=== PATIENT | male | born 1940 | race Caucasian/White ===

== ENCOUNTER 2016-12-01 20:11 | Inpatient (IN) | payer MEDICARE ==
[2016-12-01 21:00] LABS: Hematocrit 43 % (42-52); Hemoglobin 14.2 g/dl (14.0-18.0); Mean Corpuscular HGB Conc 33 g/dl (31-36); Mean Corpuscular Hemoglobin 30 pg (27-31); Mean Corpuscular Volume 89 fL (80-94); Mean Platelet Volume 8 um3 (7.4-10.4); Red Blood Count 4.81 10^6/ul (4.0-5.4); Red Cell Distribution Width 14 % (10.5-15); White Blood Count 6.4 10^3/ul (3.5-10.8)
--- NOTE | 2016-12-01 21:05 | ED ---
Psychiatric Complaint - HPI Summary HPI Summary: Patient arrives with and daughter in law. Patient has limited communication d/t stroke several years ago, but will respond with "I'm OK." of patient states his behavior has gotten worse over the last 6-8 months and will "rage" out of control. Family no longer feel it is safe to be in the home with him. He has taken all of his medications today and per his , has not missed any doses. In the last 6 months, there have been instances of pointing a gun at his , trying to swing at family members and raging out of control by screaming. states he is a different person that he used to be and can no longer live with him this way. Patient had a coronary bypass surgery with 4 stent placements in 1988, a stroke 6 years ago and is a diabetic. Patient unable to tell me why he is here. - History Of Current Complaint Hx Obtained From: Family/Apprentice Machinist Outside Hx From Patient Unobtainable Due To: Other - stroke limits communication Onset/Duration: Gradual Onset Timing: Constant Severity Initially: Severe Severity Currently: Severe Character: Angry Aggravating Factor(s): Nothing Alleviating Factor(s): Nothing Associated Signs And Symptoms: Positive: Hostile, Confused, Social Isolation - Risk Factor(s) Completed Suicide Risk Factors: Male, Age Greater Than 60, White [place]ian <Lea Mccollum - Last Filed: 12/01/16 22:55> <Antwon Pollard - Last Filed: 12/02/16 06:20> - History Of Current Complaint Chief Complaint: EDMentalHealth Time Seen by Provider: 12/01/16 20:47 - Allergies/Home Medications Allergies/Adverse Reactions: Allergies Allergy/AdvReac Type Severity Reaction Status Date / Time No Known Allergies Allergy Verified 08/23/12 12:07 PMH/Surg Hx/FS Hx/Imm Hx Previously Healthy: No - diabetes, CAD, previous Bypass surgery in 1988, Stroke 6 years ago Endocrine/Hematology History: Reports: Hx Diabetes Cardiovascular History: Reports: Hx Coronary Artery Disease, Hx Hypertension, Hx Pacemaker/ICD, Hx Peripheral Vascular Disease History: Reports: Hx Chronic Renal Failure Neurological History: Reports: Hx Transient Ischemic Attacks (TIA) - Surgical History Surgery Procedure, Year, and Place: CVA, carotid endarterectomy, [place], CABG x 3, CVA x 2 - Immunization History Immunizations Up to Date: Unable to Obtain/Confirm Infectious Disease History: No Infectious Disease History: Denies: Traveled Outside the [place] in Last 30 Days - Social History Occupation: Retired Lives: With Family Alcohol Use: None Hx Substance Use: No Substance Use Type: Reports: None Hx Tobacco Use: No Smoking Status (MU): Former Smoker <Lea Mccollum Julio - Last Filed: 12/01/16 22:55> Review of Systems Constitutional: Negative Eyes: Negative Cardiovascular: Negative Positive: Cough Gastrointestinal: Negative Positive: see HPI Skin: Negative Neurological: Negative All Other Systems Reviewed And Are Negative: Yes <Veda,Lea Kim - Last Filed: 12/01/16 22:55> Physical Exam Triage Information Reviewed: Yes Vital Signs On Initial Exam: Initial Vitals Temp Pulse Resp BP Pulse Ox 98.0 F 70 16 120/71 96 12/01/16 20:24 12/01/16 20:24 12/01/16 20:24 12/01/16 20:24 12/01/16 20:24 Completion Of Physical Exam Limited Due To: Dementia Appearance: Positive: Well-Appearing, Thin Skin: Positive: Warm, Skin Color Reflects Adequate Perfusion Head/Face: Positive: Normal Head/Face Inspection Eyes: Positive: EOMI, NAS, Conjunctiva Clear Neck: Positive: Supple, No Lymphadenopathy Respiratory/Lung Sounds: Positive: Clear to Auscultation, Breath Sounds Present Cardiovascular: Positive: Normal, Pulses are Symmetrical in both Upper and Lower Extremities Bowel Sounds: Positive: Present Neurological: Positive: Sensory/Motor Intact, Speech Normal Psychiatric: Positive: Patient Uncooperative for Exam - patient refusing to answer questions on exam <Veda,Lea Kim - Last Filed: 12/01/16 22:55> Vital Signs On Initial Exam: Initial Vitals Temp Pulse Resp BP Pulse Ox 98.0 F 70 16 120/71 96 12/01/16 20:24 12/01/16 20:24 12/01/16 20:24 12/01/16 20:24 12/01/16 20:24 <Antwon Pollard - Last Filed: 12/02/16 06:20> Diagnostics - Vital Signs Vital Signs Temp Pulse Resp BP Pulse Ox 12/01/16 20:24 98.0 F 70 16 120/71 96 - Laboratory Result Diagrams: 12/01/16 20:45 12/01/16 20:45 Lab Statement: Any lab studies that have been ordered have been reviewed, and results considered in the medical decision making process. <Lea Mccollum - Last Filed: 12/01/16 22:55> - Vital Signs Vital Signs Temp Pulse Resp BP Pulse Ox 12/01/16 20:24 98.0 F 70 16 120/71 96 - Laboratory Lab Results: Lab Results 12/01/16 12/01/16 Range/Units 20:45 20:45 WBC 6.4 (3.5-10.8) 10^3/ul RBC 4.81 (4.0-5.4) 10^6/ul Hgb 14.2 (14.0-18.0) g/dl Hct 43 (42-52) % MCV 89 (80-94) fL MCH 30 (27-31) pg MCHC 33 (31-36) g/dl RDW 14 (10.5-15) % Plt Count 232 (150-450) 10^3/ul MPV 8 (7.4-10.4) um3 Neut % (Auto) 54.6 (38-83) % Lymph % (Auto) 25.7 (25-47) % Scurry % (Auto) 12.2 H (1-9) % Eos % (Auto) 6.5 H (0-6) % Baso % (Auto) 1.0 (0-2) % Absolute Neuts (auto) 3.5 (1.5-7.7) 10^3/ul Absolute Lymphs (auto) 1.7 (1.0-4.8) 10^3/ul Absolute Monos (auto) 0.8 (0-0.8) 10^3/ul Absolute Eos (auto) 0.4 (0-0.6) 10^3/ul Absolute Basos (auto) 0.1 (0-0.2) 10^3/ul Absolute Nucleated RBC 0 10^3/ul Nucleated RBC % 0 Sodium 138 (133-145) mmol/L Potassium 4.2 (3.5-5.0) mmol/L Chloride 105 (101-111) mmol/L Carbon Dioxide 25 (22-32) mmol/L Anion Gap 8 (2-11) mmol/L BUN 22 (6-24) mg/dL Creatinine 1.26 H (0.67-1.17) mg/dL Est GFR ( Amer) 71.2 (>60) Est GFR (Non-Af Amer) 55.4 (>60) BUN/Creatinine Ratio 17.5 (8-20) Glucose 89 (70-100) mg/dL Calcium 9.5 (8.6-10.3) mg/dL Total Bilirubin 0.30 (0.2-1.0) mg/dL AST 19 (13-39) U/L ALT 18 (7-52) U/L Alkaline Phosphatase 56 (34-104) U/L Total Protein 7.1 (6.4-8.9) g/dL Albumin 4.0 (3.2-5.2) g/dL Globulin 3.1 (2-4) g/dL Albumin/Globulin Ratio 1.3 (1-3) TSH 3.79 (0.34-5.60) mcIU/mL Salicylates < 2.50 (<30) mg/dL Acetaminophen < 15 mcg/mL Serum Alcohol < 10 (<10) mg/dL Result Diagrams: 12/01/16 20:45 12/01/16 20:45 Lab Statement: Any lab studies that have been ordered have been reviewed, and results considered in the medical decision making process. <Antwon Pollard - Last Filed: 12/02/16 06:20> Course/Dx - Course Course Of Treatment: Patient exhibiting violent behavior towards family which has progressively gotten worse over last 6 months. He is threatening family members and now they fear for their life and are no longer able to live with him. Patient is uncooperative on exam and refusing to answer providers questions. Stroke 6 years ago per limits his communication. Patient does have dementia, but per it is unknown if his behavior is from the stroke or the dementia. CT Brain performed with no new findings. Family consulted about possible social admission for social work to see patient in the AM d/t behavior and placement. It is unlikely he will need a psych admission at this point. <Lea Mccollum - Last Filed: 12/01/16 22:55> <Antwon Pollard - Last Filed: 12/02/16 06:20> - Differential Dx/Clinical Impression Provider Diagnosis: Dementia Discharge <Lea Mccollum - Last Filed: 12/01/16 22:55> <Antwon Pollard - Last Filed: 12/02/16 06:20> - Discharge Plan Condition: Guarded Disposition: ADMITTED TO [facility]
[2016-12-01 21:15] LABS: ALT 18 U/L (7-52); AST 19 U/L (13-39); Alkaline Phosphatase 56 U/L (34-104); Anion Gap 8 mmol/L (2-11); BUN/Creatinine Ratio 17.5 (8-20); Blood Urea Nitrogen 22 mg/dL (6-24); CO2 Carbon Dioxide 25 mmol/L (22-32); Calcium 9.5 mg/dL (8.6-10.3); Chloride 105 mmol/L (101-111); EGFR African American 71.2 (>60); EGFR Non-African American 55.4 (>60); Globulin 3.1 g/dL (2-4); Glucose 89 mg/dL (70-100); Potassium 4.2 mmol/L (3.5-5.0); Sodium 138 mmol/L (133-145); Total Protein 7.1 g/dL (6.4-8.9)
--- NOTE | 2016-12-01 21:23 | RAD ---
INDICATION: Dementia. History of CVA. COMPARISON: CT brain April 21, 2014 TECHNIQUE: Noncontrast axial source images were acquired from the skull base to the vertex. FINDINGS: Ventricles/sulci: There is cortical atrophy with compensatory dilatation of the CSF spaces. Brain parenchyma: There are old left posterior parietal and right frontoparietal infarct with resultant encephalomalacia. There is chronic microvascular ischemic change. Intracranial hemorrhage:None. Extra-axial spaces: There are no abnormal extra axial fluid collections or evidence of extra-axial mass. Calvarium: There is no calvarial fracture or other calvarial abnormality. Scalp: There is no evidence of scalp or extracalvarial soft tissue abnormality. Paranasal sinuses/mastoid: The paranasal sinuses and mastoid air cells are clear. Other: Bilateral basal ganglia calcifications.. IMPRESSION: Prior infarcts with encephalomalacia. No acute intracranial findings.
[2016-12-01 21:31] LABS: Acetaminophen < 15 mcg/mL; Alcohol < 10 mg/dL (<10); Salicylate < 2.50 mg/dL (<30)
[2016-12-01 21:41] LABS: TSH (Thyroid Stimulating Horm) 3.79 mcIU/mL (0.34-5.60)
[2016-12-01] MEDS ORDERED: Acetaminophen TAB* 325 MG PO PRN (23:43)
[2016-12-01] MEDS ORDERED: Al Hydrox/Mg Hydrox/Simet LIQ* 30 ML UDC PO PRN (23:43)
[2016-12-01] MEDS ORDERED: Docusate CAP* 100 MG PO PRN (23:43)
[2016-12-01] MEDS ORDERED: Senna TAB PO PRN (23:43)
[2016-12-01] MEDS ORDERED: Ondansetron INJ* 2 MG/ML VIAL IV PRN (23:43)
[2016-12-01] MEDS ORDERED: Dextrose 50% Syringe 50 ML* 25 GM/50 ML SYRINGE IV PUSH PRN (23:47)
[2016-12-02] MEDS ORDERED: Haloperidol TAB* 2 MG PO PRN (00:04)
--- NOTE | 2016-12-02 02:36 | HP ---
HISTORY AND PHYSICAL: DATE OF ADMISSION: 12/01/16 TIME OF EVALUATION: 2300 PRIMARY CARE PHYSICIAN: German Mckeon MD CHIEF COMPLAINT: Agitation with altered mental status. HISTORY OF PRESENT ILLNESS: Of note, the patient is unable to answer questions or follow commands appropriately. There is no family member in the room and I am unable to get in touch with them by phone. Per report is based on the ER notes and prior records. The patient arrived to the emergency room with his and daughter. He has limited communication due to his stroke. states that his behavior has gotten worse over the past 6 to 8 months with rage out of control. Family no longer feels safe for him to be in the home. In the last 6 months, there have been instances of pointing a gun at his , trying to be aggressive with family members, and raging out of control by screaming. states that he is a different person than he used to be and can no longer live with him this way. On my encounter, the patient is unable to answer any questions appropriately. He is alert and oriented x0. He is unable to follow any commands. No signs of agitation or aggressive behavior during my brief encounter with him. Due to the concern for safety at home, hospitalist was called for evaluation and admission for placement. PAST MEDICAL HISTORY: Per prior records from 2013, the patient has a history of stroke; hypertension; hyperlipidemia; diabetes; CKD, stage 3; history of neuropathy; peripheral vascular disease; history of SVT; history of coronary artery disease, status post bypass; history of prostate cancer; history of GERD ; history of a left and right carotid endarterectomy; triple bypass surgery; history of prostatectomy. MEDICATIONS: 1. MiraLAX 1 teaspoon in 8 ounces of water daily. 2. Metoprolol tartrate 12.5 mg p.o. b.i.d. 3. Aspirin 325 mg daily in the morning. 4. Colace 100 mg daily in the morning. 5. Ranitidine 150 mg daily. 6. Glipizide 5 mg daily. 7. Enalapril 5 mg p.o. b.i.d. 8. Metformin 1000 mg daily. 9. Rosuvastatin 40 mg daily. 10. Lasix 20 mg Thursday, Thursday, Thursday. 11. Spironolactone 25 mg Thursday, , and Thursday. 12. Lamotrigine 50 mg p.o. daily, which was started on 11/06/16. 13. Vitamin D 4000 units twice a week. 14. Escitalopram oxalate 10 mg daily. ALLERGIES: No known drug allergies. FAMILY HISTORY: History of coronary disease and diabetes. SOCIAL HISTORY: It appears the patient lives at home with his , who per prior records has been his primary surrogate decision maker, history of smoking , no alcohol or recreational drugs. REVIEW OF SYSTEMS: Unable to be obtained due to the patient's profound dementia. PHYSICAL EXAMINATION GENERAL: In no acute distress, resting comfortably. VITAL SIGNS: Temp 98, pulse rate 70, respiratory rate 16, oxygen saturation 96 % on room air, blood pressure 120/71. HEENT: Neck supple. No lymphadenopathy. Pupils equal and reactive, anicteric. Head: Normocephalic. Oropharynx: Mucous membranes moist. No erythema or exudate. RESPIRATORY: Diminished breath sounds. No wheezing, rhonchi, or rales. CARDIAC: Regular rate and rhythm. Soft systolic murmur heard more pronounced at the right sternal base. No carotid bruits. ABDOMEN: Mild distention, nontender. EXTREMITIES: No clubbing, cyanosis, or edema. +1 DPs. NEUROLOGIC: As mentioned, alert and oriented x0. No gross focal neurologic deficits and unable to follow any commands. DIAGNOSTIC STUDIES/LAB DATA: White count 6.4, hemoglobin 14.2, hematocrit 43, platelets 232. Sodium 138, potassium 4.2, chloride 105, bicarb 25, BUN 22, creatinine 1.26, glucose 89. TSH 3.79. Toxicology: Negative for salicylates, acetaminophen, and alcohol. Radiographic data: Head CT, prior infarct with encephalomalacia. No acute intracranial findings. ASSESSMENT AND PLAN: This is a 76-year-old male with a past medical history of vascular dementia, who has progressive aggressive behavior at home and is unsafe to be taken care of at home by the . Progressive vascular dementia. Assessment: As mentioned, the patient now with aggressive behavior. I suspect that the lamotrigine was started due to his aggressive behavior back in October. There is no documentation of a seizure disorder. This can cause emotional lability though I doubt that this is really contributing significantly to his mental status. We will decrease it by half as it was mentioned to decrease 50 per week unless urgent and then I would follow up with the family to make sure he is not on this for seizure disorder. There are no other findings on his lab or imaging to suggest any other etiology for his worsening mental status other than lamotrigine. Plan: We will admit him for observation to [facility]. We will start him on Haldol as needed. As mentioned, decrease his lamotrigine. We will order Social Work consult and recommend following up with the family regarding better history including seizure disorder and his code status as it is unknown at this time and as mentioned, unable to get in touch with the family members. CHRONIC MEDICAL PROBLEMS: 1. Hypertension. Resume his metoprolol tartrate and his aspirin. 2. Suspect a history of congestive heart failure. We will per Dr Trujillo's note continue him on his Lasix and spironolactone regimen. 3. Diabetes: We will hold his oral antihyperglycemic agents and place him on lispro sliding scale. 4. Hyperlipidemia. Continue his rosuvastatin. 5. GERD. We will place him on Pepcid in place of his Zantac. 6. Dementia with behavioral disturbance. As mentioned above, we will decrease his lamotrigine. I doubt that any other agents such as Namenda or Aricept will be beneficial at this point, but can consider this. 7. FEN. Place him on a diabetic diet. 8. DVT prophylaxis, high risk. We will place him on heparin subcu t.i.d. 9. Code status. This needs to be followed with the family as it stands he remains full code. PATIENT TIME: Greater than 60 minutes was spent doing the history and physical ; more than half the time was in direct patient contact. CC: German Mckeon MD* [id number]/[facility] #: [id number] [place]
[2016-12-02] MEDS: Heparin VIAL(*) 5000 UNITS/ML VIAL (FIVE THOUSAND) SUBCUT SCH ×3 (05:43→21:29)
[2016-12-02] MEDS: Polyethylene Glycol 3350* 17 GM PACKET PO SCH (09:19)
[2016-12-02] MEDS: Famotidine TAB* 20 MG PO SCH (09:21)
[2016-12-02] MEDS: Metoprolol Tartrate TAB* 25 MG PO SCH ×2 (09:21→21:29)
[2016-12-02] MEDS: lamoTRIgine TAB(*) 25 MG PO SCH (09:21)
[2016-12-02] MEDS: Enalapril TAB* 5 MG PO SCH (09:21)
[2016-12-02] MEDS: Spironolactone TAB* 25 MG PO SCH (09:21)
[2016-12-02] MEDS: Aspirin TAB* 325 MG PO SCH (09:21)
[2016-12-02] MEDS: Insulin LISPRO* 1 UNITS UNIT SUBCUT SCH ×3 (09:24→17:35)
--- NOTE | 2016-12-02 13:43 | PN ---
Subjective Date of Service: 12/02/16 Interval History: This is a 76 yo gentleman with a h/o prior CVA, dementia, HTN, HLD, CKD, PVD who was brought to the ER by family with concern for aggressive behavior. They did not feel that they could care for him any longer at home due to this behavior. Initial workup was benign. Patient offers no acute complaints today. He has been appropriate with nursing staff since admission. Objective Active Medications: Acetaminophen (Tylenol Tab*) 650 mg PO Q4H PRN PRN Reason: FEVER/PAIN Al Hydrox/Mg Hydrox/Simethicone (Maalox Plus*) 30 ml PO Q6H PRN PRN Reason: INDIGESTION Aspirin (Aspirin Tab*) 325 mg PO DAILY [facility] Last Admin: 12/02/16 09:21 Dose: 325 mg Atorvastatin Calcium (Lipitor*) 80 mg PO 1700 [facility] Citalopram Hydrobromide (Celexa Tab*) 20 mg PO BEDTIME [facility] Dextrose (D50w Syringe 50 Ml*) 12.5 gm IV PUSH .FOR FS < 60 - SS PRN PRN Reason: FS < 60 Docusate Sodium (Colace Cap*) 100 mg PO BID PRN PRN Reason: CONSTIPATION Enalapril Maleate (Vasotec Tab*) 5 mg PO DAILY [facility] Last Admin: 12/02/16 09:21 Dose: 5 mg Famotidine (Pepcid Tab*) 20 mg PO DAILY [facility] Last Admin: 12/02/16 09:21 Dose: 20 mg Furosemide (Lasix Tab*) 20 mg PO MOWEFR [facility] Haloperidol (Haldol Tab*) 2 mg PO Q6H PRN PRN Reason: AGITATION Heparin Sodium (Porcine) (Heparin Vial(*)) 5,000 units SUBCUT Q8HR [facility] Last Admin: 12/02/16 13:21 Dose: 5,000 units Insulin Human Lispro (Humalog*) 0 units SUBCUT AC [facility] PRN Reason: Protocol Last Admin: 12/02/16 13:21 Dose: 3 units Lamotrigine (Lamictal Tab(*)) 25 mg PO DAILY [facility] Last Admin: 12/02/16 09:21 Dose: 25 mg Metoprolol Tartrate (Lopressor Tab*) 12.5 mg PO Q12HR [facility] Last Admin: 12/02/16 09:21 Dose: 12.5 mg Ondansetron HCl (Zofran Inj*) 4 mg IV Q4H PRN PRN Reason: NAUSEA/VOMITING Polyethylene Glycol/Electrolytes (Miralax*) 17 gm PO DAILY [facility] Last Admin: 12/02/16 09:19 Dose: 17 gm Senna (Senokot Tab*) 1 tab PO BID PRN PRN Reason: CONSTIPATION Spironolactone (Aldactone Tab*) 25 mg PO TUTHFR [facility] Last Admin: 12/02/16 09:21 Dose: 25 mg Vital Signs: Temp Pulse Resp BP Pulse Ox 98.1 F 74 18 133/69 94 12/02/16 02:57 12/02/16 02:57 12/02/16 02:58 12/02/16 02:57 12/02/16 02:57 Oxygen Devices in Use Now: None Appearance: Well appearing elderly gentleman Neck: NL Appearance and Movements; NL JVP Respiratory: Symmetrical Chest Expansion and Respiratory Effort, Clear to Auscultation Cardiovascular: NL Sounds; No Murmurs; No JVD, RRR Abdominal: NL Sounds; No Tenderness; No Distention Extremities: No Edema Skin: No Rash or Ulcers Neurological: - - alert, mild confusion, appropriate in conversation Result Diagrams: 12/01/16 20:45 12/01/16 20:45 Additional Lab and Data: . Diagnostic Imaging: CT brain - NAD, old infarcts and associated encephalomalacia Assess/Plan/Problems-Billing Assessment: This is a 76 yo gentleman with a h/o dementia, prior CVA, HTN, HLD, PVD, DM, stage III CKD, neuropathy, CAD s/p CABG, h/o prostate CA s/p prostatectomy and GERD who presented with concerns for aggressive behavior at home. Admitted for social reasons. - Patient Problems (1) Dementia Comment: With concern for aggressive behavior at home Likely vascular dementia type Patient has been appropriate during his hospitalizations It appears that he was recently started on Lamictal, perhaps as a mood stabilizer, unsure if this was initiated by PCP or outpatient psychiatrist Requested psychiatric consult to help to determine if there is an associated psychiatric condition that may be contributing to his current presentation His home dose of Lamictal was decreased, he may benefit from discontinuing this all together, will ask psychiatry to comment on medical management He may also benefit from Namenda and/or Aricept as his dementia does not appear terribly severe (2) H/O: CVA (cerebrovascular accident) Comment: It appears that one prior infarct is in the frontoparietal region which may be contributing to his change in behavior and aggressive tendencies at home (3) HTN (hypertension) Comment: Normotensive Continuing home medication (4) HLD (hyperlipidemia) Comment: (5) Stage III chronic kidney disease Comment: Cr 1.26, appears to be at baseline (6) PVD (peripheral vascular disease) (7) CAD (coronary artery disease) Comment: s/p CABG (8) History of prostate cancer Comment: s/p prostatectomy (9) GERD (gastroesophageal reflux disease) Status and Disposition: Patient will remain in the hospital under jail care. Case management and social work is involved to help with appropriate placement.
--- NOTE | 2016-12-02 13:47 | CONS ---
DATE OF CONSULT: 12/02/2016. CONSULTATION QUESTION: Is there an underlying psychiatric issue with this patient who evidently is suffering from end-stage dementia? HISTORY OF PRESENT ILLNESS: The patient came into the hospital due to agitation culminating in dangerous acts such as pointing an unloaded gun at his but looking for ammunition while doing so. The family has reported to staff here that the patient has ongoing signs of progression of dementia into agitated behavior, per report to me from his nurse and social security benefits interviewer. I am unable to gather much information from interview of the patient. After two or three sentence he will invariably tell me that he cannot help me, saying that he has no good, and then waiting for me to complete his statement with memory?, which he agrees to. He is pleasant and does make an earnest albeit unsuccessful effort to help me with my questions. I did speak with his PCP, Dr Mckeon, who reports that Mr. Maldonado has had multiple strokes over several years resulting in a severe multi-infarct dementia , the last stroke occurring a few years ago. Dr. Mckeon did not know of any psychiatric history and did not know of development of any symptoms evincive of a psychiatric illness. All of Mr. Hill erratic behavior has unfolded, so far as Dr. Mckeon knows, after these multiple strokes. He has tried Lexapro and most recently Lamictal, and had report from Mr. Hill that the Lamictal might have provided some initial benefit, but this did not hold up. I have attempted to contact his , Brinda, per the recommendation of the social security benefits interviewer on the case, Dolores. Dolores tells me that she has been unable to contact his sons. I did not get ahold of his as the phone just continued to ring and no one picked up over 2 attempts midday. PSYCHIATRIC HISTORY: Denies any, and his PCP knows of none. SUBSTANCE ABUSE HISTORY: Denies any. MEDICAL HISTORY: Please see documentation from hospitalist service for complete list. Most relevant issue here is multiple strokes, hypertension, hyperlipidemia, DM2, CKD stage 3, history prostate cancer. MENTAL STATUS EXAMINATION: Mr. Maldonado says his mood is fine, and he denies any hallucinations or dangerous intent or plan. His thought process is severely impoverished. He has grooming and hygiene adequate to setting. He makes good eye contact. His speech has regular rate, rhythm and volume, but only for at most 2-3 sentences at a time prior to becoming confused. ASSESSMENT/RECOMMENDATIONS: I see no clear indications of an underlying psychiatric illness. His report to me is that this is a gentleman in a severe demented state who will require placement for increased agitation due to that. There is no indication or history gathered thus far for an underlying psychiatric issue. If not already available, might benefit from neuroimaging to rule out visualizable cause of mental status change apart from stroke, ie tumor. MRI might be challenging, however, given limited capacity to hold head still for study due to severe dementia. DIAGNOSIS: No identifiable primary psychiatric disorder. Multi-infarct dementia most likely cause of behavioral changes. [id number]/[facility] #: [id number] [place]
[2016-12-02 15:42] LABS: Urine Bacteria Absent (Absent); Urine Bilirubin Negative (Negative); Urine Glucose Negative (Negative); Urine Nitrite Negative (Negative)
[2016-12-02 15:52] LABS: Benzodiazepine Urine Screen None Detected (None Detect)
[2016-12-02] MEDS: Atorvastatin* 80 MG TAB PO SCH (17:34)
[2016-12-02] MEDS: Citalopram TAB* 20 MG PO SCH (21:29)
[2016-12-03] MEDS: Heparin VIAL(*) 5000 UNITS/ML VIAL (FIVE THOUSAND) SUBCUT SCH ×3 (07:25→21:24)
[2016-12-03] MEDS: Polyethylene Glycol 3350* 17 GM PACKET PO SCH (09:35)
[2016-12-03] MEDS: Metoprolol Tartrate TAB* 25 MG PO SCH ×2 (09:35→21:18)
[2016-12-03] MEDS: Aspirin TAB* 325 MG PO SCH (09:35)
[2016-12-03] MEDS: Enalapril TAB* 5 MG PO SCH (09:35)
[2016-12-03] MEDS: lamoTRIgine TAB(*) 25 MG PO SCH (09:35)
[2016-12-03] MEDS: Furosemide TAB* 20 MG PO SCH (09:35)
[2016-12-03] MEDS: Famotidine TAB* 20 MG PO SCH (09:36)
[2016-12-03] MEDS: Insulin LISPRO* 1 UNITS UNIT SUBCUT SCH ×3 (09:36→18:43)
[2016-12-03] MEDS: Atorvastatin* 80 MG TAB PO SCH (16:41)
[2016-12-03] MEDS: Citalopram TAB* 20 MG PO SCH (21:18)
[2016-12-04] MEDS: Heparin VIAL(*) 5000 UNITS/ML VIAL (FIVE THOUSAND) SUBCUT SCH ×3 (06:26→22:08)
[2016-12-04] MEDS: Insulin LISPRO* 1 UNITS UNIT SUBCUT SCH ×3 (09:27→20:17)
[2016-12-04] MEDS: Metoprolol Tartrate TAB* 25 MG PO SCH ×2 (09:29→22:08)
[2016-12-04] MEDS: Polyethylene Glycol 3350* 17 GM PACKET PO SCH (09:31)
[2016-12-04] MEDS: Enalapril TAB* 5 MG PO SCH (09:32)
[2016-12-04] MEDS: Aspirin TAB* 325 MG PO SCH (09:32)
[2016-12-04] MEDS: lamoTRIgine TAB(*) 25 MG PO SCH (09:32)
[2016-12-04] MEDS: Famotidine TAB* 20 MG PO SCH (09:32)
[2016-12-04] MEDS: Spironolactone TAB* 25 MG PO SCH (09:42)
[2016-12-04] MEDS: Atorvastatin* 80 MG TAB PO SCH (18:13)
[2016-12-04] MEDS ORDERED: Magnesium Hydroxide LIQ* 30 ML UDC PO PRN (19:18)
[2016-12-04] MEDS ORDERED: Artificial Tears* 15 ML BTL BOTH EYES PRN (19:23)
--- NOTE | 2016-12-04 19:25 | PN ---
Subjective Date of Service: 12/04/16 Interval History: Patient seen and examined at bedside. Pt denies complain with the exception of dry eyes. Pt's states that his abdomen appears to be larger than his normal. Per NSG staff Pt has not moved his bowels in 2 days. Denies fever, chills, shortness of breath, chest discomfort, N/V/D. Family History: Unchanged from Admission Social History: Unchanged from Admission Past Medical History: Unchanged from Admission Objective Active Medications: Acetaminophen (Tylenol Tab*) 650 mg PO Q4H PRN Reason: FEVER/PAIN Al Hydrox/Mg Hydrox/Simethicone (Maalox Plus*) 30 ml PO Q6H PRN Reason: INDIGESTION Aspirin (Aspirin Tab*) 325 mg PO DAILY [facility] Atorvastatin Calcium (Lipitor*) 80 mg PO 1700 [facility] Citalopram Hydrobromide (Celexa Tab*) 20 mg PO BEDTIME [facility] Dextrose (D50w Syringe 50 Ml*) 12.5 gm IV PUSH .FOR FS < 60 - SS PRN Reason: FS < 60 Docusate Sodium (Colace Cap*) 100 mg PO BID PRN Reason: CONSTIPATION Enalapril Maleate (Vasotec Tab*) 5 mg PO DAILY [facility] Famotidine (Pepcid Tab*) 20 mg PO DAILY [facility] Furosemide (Lasix Tab*) 20 mg PO MOWEFR [facility] Haloperidol (Haldol Tab*) 2 mg PO Q6H PRN Reason: AGITATION Heparin Sodium (Porcine) (Heparin Vial(*)) 5,000 units SUBCUT Q8HR [facility] Insulin Human Lispro (Humalog*) 0 units SUBCUT AC [facility] Lamotrigine (Lamictal Tab(*)) 25 mg PO DAILY [facility] Metoprolol Tartrate (Lopressor Tab*) 12.5 mg PO Q12HR [facility] Ondansetron HCl (Zofran Inj*) 4 mg IV Q4H PRN Reason: NAUSEA/VOMITING Polyethylene Glycol/Electrolytes (Miralax*) 17 gm PO DAILY [facility] Senna (Senokot Tab*) 1 tab PO BID PRN Reason: CONSTIPATION Spironolactone (Aldactone Tab*) 25 mg PO TUTHFR [facility] Vital Signs 12/03/16 12/04/16 12/04/16 20:00 07:16 08:00 Temperature 98.3 F Pulse Rate 70 Respiratory 16 16 Rate Blood Pressure 131/69 (mmHg) O2 Sat by Pulse 96 Oximetry Oxygen Devices in Use Now: None Result Diagrams: 12/01/16 20:45 12/01/16 20:45 Additional Lab and Data: . Microbiology and Other Data: Microbiology 12/02/16 15:15 Urine Culture - Final Urine Diagnostic Imaging: CT brain - NAD, old infarcts and associated encephalomalacia Assess/Plan/Problems-Billing Assessment: Mr. Maldonado is a 76 yo gentleman with a h/o dementia, prior CVA, HTN, HLD, PVD, DM, stage III CKD, neuropathy, CAD s/p CABG, h/o prostate CA s/p prostatectomy and GERD who presented with concerns for aggressive behavior at home. Admitted for social reasons. - Patient Problems (1) Dementia Code(s): F03.90 - UNSPECIFIED DEMENTIA WITHOUT BEHAVIORAL DISTURBANCE SNOMED Code(s): 02805132 Comment: - With concern for aggressive behavior at home - Likely vascular dementia type - Patient has been appropriate during his hospitalizations - It appears that he was recently started on Lamictal, perhaps as a mood stabilizer, unsure if this was initiated by PCP or outpatient psychiatrist - Psychiatric consult, feel this is all related to his dementia - His home dose of Lamictal was decreased, he may benefit from discontinuing this all together - He may also benefit from Namenda and/or Aricept as his dementia does not appear to be severe (2) H/O: CVA (cerebrovascular accident) Code(s): Z86.73 - PRSNL HX OF TIA (TIA), AND CEREB INFRC W/O RESID DEFICITS SNOMED Code(s): 105645683 Comment: - It appears that one prior infarct is in the frontoparietal region which may be contributing to his change in behavior and aggressive tendencies at home (3) CAD (coronary artery disease) Code(s): I25.10 - ATHSCL HEART DISEASE OF [place] CORONARY ARTERY W/O ANG PCTRS SNOMED Code(s): 78554906 Comment: - s/p CABG (4) GERD (gastroesophageal reflux disease) Code(s): K21.9 - GASTRO-ESOPHAGEAL REFLUX DISEASE WITHOUT ESOPHAGITIS SNOMED Code(s): 617755909 Comment: - Continue Pepcid (5) HLD (hyperlipidemia) Code(s): E78.5 - HYPERLIPIDEMIA, UNSPECIFIED SNOMED Code(s): 68826143 Comment: - Continue Atorvastatin (6) HTN (hypertension) Code(s): I10 - ESSENTIAL (PRIMARY) HYPERTENSION SNOMED Code(s): 22534394 Comment: - Normotensive - Continuing home medication (7) History of prostate cancer Code(s): Z85.46 - PERSONAL HISTORY OF MALIGNANT NEOPLASM OF PROSTATE SNOMED Code(s): 900823955 Comment: - s/p prostatectomy (8) Stage III chronic kidney disease Code(s): N18.3 - CHRONIC KIDNEY DISEASE, STAGE 3 (MODERATE) SNOMED Code(s): 853964532 Comment: - Cr 1.26, appears to be at baseline (9) PVD (peripheral vascular disease) Code(s): I73.9 - PERIPHERAL VASCULAR DISEASE, UNSPECIFIED SNOMED Code(s): 509606045 (10) DVT prophylaxis Code(s): CLP6746 - SNOMED Code(s): 738509032 Comment: - Continue Heparin SQ (11) Full code status Code(s): Z78.9 - OTHER SPECIFIED HEALTH STATUS SNOMED Code(s): 548809062 Status and Disposition: Patient will remain in the hospital under penitentiary care. Case management and social work is involved to help with appropriate placement.
[2016-12-04] MEDS: Citalopram TAB* 20 MG PO SCH (22:10)
[2016-12-05] MEDS: Heparin VIAL(*) 5000 UNITS/ML VIAL (FIVE THOUSAND) SUBCUT SCH (06:49)
[2016-12-05] MEDS: Famotidine TAB* 20 MG PO SCH (09:11)
[2016-12-05] MEDS: lamoTRIgine TAB(*) 25 MG PO SCH (09:11)
[2016-12-05] MEDS: Aspirin TAB* 325 MG PO SCH (09:11)
[2016-12-05] MEDS: Polyethylene Glycol 3350* 17 GM PACKET PO SCH (09:11)
[2016-12-05] MEDS: Metoprolol Tartrate TAB* 25 MG PO SCH (09:11)
[2016-12-05] MEDS: Enalapril TAB* 5 MG PO SCH (09:11)
[2016-12-05] MEDS: Spironolactone TAB* 25 MG PO SCH (09:37)
[2016-12-05] MEDS: Furosemide TAB* 20 MG PO SCH (09:43)
[2016-12-05] MEDS: Insulin LISPRO* 1 UNITS UNIT SUBCUT SCH ×2 (09:44→12:51)
--- NOTE | 2016-12-05 09:53 | PN ---
Subjective Date of Service: 12/05/16 Interval History: Patient seen and examined at bedside. Pt states that he is feeling well today. Denies fever, chills, shortness of breath, chest discomfort, N/V/D. Family History: Unchanged from Admission Social History: Unchanged from Admission Past Medical History: Unchanged from Admission Objective Active Medications: Acetaminophen (Tylenol Tab*) 650 mg PO Q4H PRN Reason: FEVER/PAIN Al Hydrox/Mg Hydrox/Simethicone (Maalox Plus*) 30 ml PO Q6H PRN Reason: INDIGESTION Aspirin (Aspirin Tab*) 325 mg PO DAILY [facility] Atorvastatin Calcium (Lipitor*) 80 mg PO 1700 [facility] Citalopram Hydrobromide (Celexa Tab*) 20 mg PO BEDTIME [facility] Dextrose (D50w Syringe 50 Ml*) 12.5 gm IV PUSH .FOR FS < 60 - SS PRN Reason: FS < 60 Docusate Sodium (Colace Cap*) 100 mg PO BID PRN Reason: CONSTIPATION Enalapril Maleate (Vasotec Tab*) 5 mg PO DAILY [facility] Famotidine (Pepcid Tab*) 20 mg PO DAILY [facility] Furosemide (Lasix Tab*) 20 mg PO MOWEFR [facility] Haloperidol (Haldol Tab*) 2 mg PO Q6H PRN Reason: AGITATION Heparin Sodium (Porcine) (Heparin Vial(*)) 5,000 units SUBCUT Q8HR [facility] Insulin Human Lispro (Humalog*) 0 units SUBCUT AC [facility] Reason: Protocol Lamotrigine (Lamictal Tab(*)) 25 mg PO DAILY [facility] Magnesium Hydroxide (Milk Of Magnesia Liq*) 30 ml PO Q6H PRN Reason: CONSTIPATION Metoprolol Tartrate (Lopressor Tab*) 12.5 mg PO Q12HR [facility] Ondansetron HCl (Zofran Inj*) 4 mg IV Q4H PRN Reason: NAUSEA/VOMITING Polyethylene Glycol/Electrolytes (Miralax*) 17 gm PO DAILY [facility] Polyvinyl Alcohol (Polyvinyl Alcohol 1.4% Opth*) 1 drop BOTH EYES Q4H PRN Reason: DRY EYE Senna (Senokot Tab*) 1 tab PO BID PRN Reason: CONSTIPATION Spironolactone (Aldactone Tab*) 25 mg PO TUTHFR [facility] Vital Signs 12/04/16 12/04/16 18:46 20:00 Temperature 97.7 F Pulse Rate 70 Respiratory 16 16 Rate Blood Pressure 129/72 (mmHg) O2 Sat by Pulse 97 Oximetry Oxygen Devices in Use Now: None Appearance: NAD, sitting up in a chair. Eyes: No Scleral Icterus, PERRLA Ears/Nose/Mouth/Throat: NL Teeth, Lips, Gums, Mucous Membranes Moist Neck: NL Appearance and Movements; NL JVP, Trachea Midline Respiratory: Symmetrical Chest Expansion and Respiratory Effort, Clear to Auscultation - , some rhonchi that clear with cough Cardiovascular: NL Sounds; No Murmurs; No JVD, RRR Abdominal: - - Abdomen soft/semi-firm, large, non tender. Bowel sounds present Extremities: No Edema Skin: No Rash or Ulcers Neurological: NL Muscle Strength and Tone, - - Alert and Oriented to Person, confused Nutrition: Taking PO's Result Diagrams: 12/01/16 20:45 12/01/16 20:45 Additional Lab and Data: . Microbiology and Other Data: Microbiology 12/02/16 15:15 Urine Culture - Final Urine Diagnostic Imaging: CT brain - NAD, old infarcts and associated encephalomalacia Assess/Plan/Problems-Billing Assessment: Mr. Maldonado is a 76 yo gentleman with a h/o dementia, prior CVA, HTN, HLD, PVD, DM, stage III CKD, neuropathy, CAD s/p CABG, h/o prostate CA s/p prostatectomy and GERD who presented with concerns for aggressive behavior at home. Admitted for social reasons. - Patient Problems (1) Dementia Code(s): F03.90 - UNSPECIFIED DEMENTIA WITHOUT BEHAVIORAL DISTURBANCE SNOMED Code(s): 44546301 Comment: - With concern for aggressive behavior at home - Likely vascular dementia type - Patient has been appropriate during his hospitalizations - He was recently started on Lamictal, perhaps as a mood stabilizer, by his PCP - Psychiatric consult, feel this is all related to his dementia - His home dose of Lamictal was decreased, he may benefit from discontinuing this all together - He may also benefit from Namenda and/or Aricept as his dementia does not appear to be severe (2) H/O: CVA (cerebrovascular accident) Code(s): Z86.73 - PRSNL HX OF TIA (TIA), AND CEREB INFRC W/O RESID DEFICITS SNOMED Code(s): 909514666 Comment: - It appears that one prior infarct is in the frontoparietal region which may be contributing to his change in behavior and aggressive tendencies at home (3) CAD (coronary artery disease) Code(s): I25.10 - ATHSCL HEART DISEASE OF [place] CORONARY ARTERY W/O ANG PCTRS SNOMED Code(s): 90342731 Comment: - s/p CABG - Continue ASA, beta-nayla and statin (4) GERD (gastroesophageal reflux disease) Code(s): K21.9 - GASTRO-ESOPHAGEAL REFLUX DISEASE WITHOUT ESOPHAGITIS SNOMED Code(s): 639462709 Comment: - Continue home medication (5) HLD (hyperlipidemia) Code(s): E78.5 - HYPERLIPIDEMIA, UNSPECIFIED SNOMED Code(s): 94091024 Comment: - Continue home medication (6) HTN (hypertension) Code(s): I10 - ESSENTIAL (PRIMARY) HYPERTENSION SNOMED Code(s): 52657720 Comment: - Normotensive - Continue home medication (7) History of prostate cancer Code(s): Z85.46 - PERSONAL HISTORY OF MALIGNANT NEOPLASM OF PROSTATE SNOMED Code(s): 636765111 Comment: - s/p prostatectomy (8) Stage III chronic kidney disease Code(s): N18.3 - CHRONIC KIDNEY DISEASE, STAGE 3 (MODERATE) SNOMED Code(s): 329578183 Comment: - Cr 1.26, appears to be at baseline (9) PVD (peripheral vascular disease) Code(s): I73.9 - PERIPHERAL VASCULAR DISEASE, UNSPECIFIED SNOMED Code(s): 612820570 (10) DVT prophylaxis Code(s): ZOX5101 - SNOMED Code(s): 853360922 Comment: (11) Full code status Code(s): Z78.9 - OTHER SPECIFIED HEALTH STATUS SNOMED Code(s): 073007434 Status and Disposition: [facility]. Stable for discharge to [facility] today.
[2016-12-05 12:08] VITALS: BP 133/74
--- NOTE | 2016-12-05 12:12 | DS ---
DISCHARGE SUMMARY: DATE OF ADMISSION: 12/01/16 DATE OF DISCHARGE: 12/05/16 ATTENDING PHYSICIAN: Bernarda Roberts MD *(dictated by Kalli Gonzalez NP) PRIMARY CARE PROVIDER: German Mckeon MD PRIMARY DIAGNOSES: 1. Altered mental status. 2. Dementia with behavioral disturbance. SECONDARY DIAGNOSES: 1. Hypertension. 2. Congestive heart failure. 3. Diabetes mellitus. 4. Hyperlipidemia. 5. Gastroesophageal reflux disease. 6. Chronic kidney disease, stage 3. 7. History of coronary artery disease, status post biopsy. 8. History of neuropathy. 9. Peripheral vascular disease. CONSULTATIONS WHILE IN THE HOSPITAL: Gerardo Vázquez MD with Psychiatry. STUDIES WHILE IN THE HOSPITAL: Brain CT on 12/01/16. Radiologist's impression : Prior infarcts with encephalomalacia. No acute intracranial findings. DISCHARGE MEDICATIONS: New medications: 1. Acetaminophen 650 mg oral every 4 hours as needed for fever or pain. 2. Maalox 30 mL oral every 6 hours as needed for indigestion. 3. Artificial tears 1 drop to both eyes every 4 hours as need for dry eye. 4. Milk of magnesia 30 mL oral every 6 hours as needed for constipation. 5. Senokot 1 tablet oral twice daily as needed for constipation. Continued home medications: 1. Metformin 1000 mg oral daily. 2. Glipizide 5 mg oral daily. 3. Ranitidine 150 mg oral daily. 4. Colace 100 mg oral daily. 5. Aspirin 325 mg oral daily. 6. Rosuvastatin 40 mg oral daily. 7. Metoprolol tartrate 12.5 mg oral twice daily. 8. Vitamin D 4000 units oral twice weekly. 9. MiraLAX 17 g oral daily. 10. Furosemide 20 mg oral daily on even days. 11. Spironolactone 25 mg oral every other day on odd days. Changed home medications: 1. Citalopram 20 mg oral daily at bedtime. 2. Enalapril 5 mg oral daily. 3. Lamictal 25 mg oral daily. HISTORY OF PRESENT ILLNESS/HOSPITAL COURSE: Mr. Maldonado is a 76-year-old male with past medical history significant for history of cerebrovascular accidents; hypertension; hyperlipidemia; diabetes mellitus; chronic kidney disease, stage 3 ; and peripheral vascular disease who, per family, reports that the patient's behavior has gotten worse over the last 6 to 8 months. The patient had limited communication due to his history of strokes. The patient's family was no longer feeling that he was safe to be at home. The patient had often been aggressive with family members and screaming out of control at them. Due to the feeling that the patient was no longer safe at home, the patient was brought to the emergency room for further evaluation. While in the emergency room, the patient was not aggressive or agitated. He was not alert, or oriented. The patient had a brain CT showing prior infarcts with encephalomalacia. The patient had labs that were unremarkable. Based off of the concern that the patient was not safe to go home hospitalists were asked to evaluate the patient for admission. While in the hospital, the patient remained calm and cooperative. He had no aggressive or combative episodes. The patient was seen in consultation with Dr. Vázquez with Psychiatry. It was felt that the patient's behavior was likely due to the patient's dementia. It was felt that there were no clear indications of underlying psychiatric issues. It was felt that the patient would need prison placement. It was recommended that the patient possibly undergo an MRI, but it was felt this will be challenging as the patient was unable to sit still. Psychiatry felt that the patient had a multi- infarct dementia causing his behavioral changes. The patient had his Lamictal dosing decreased at admission and has been tolerating that well. The patient was offered a bed to [facility]. Mr. Maldonado is stable for discharge to [facility] today. Vitals signs are as follows: Temperature 97.7, heart rate 70, respiratory rate 16, O2 sat 97% on room air, and blood pressure 129/72. DISCHARGE PLAN: Mr. Maldonado will be discharged to [facility] today. ACTIVITY: As tolerated. DIET: She will be on a consistent carbohydrate diet. Recommended for the patient's diabetes he has glucose monitoring. As far as the patient's history of congestive heart failure, he should be continued on his current spironolactone and furosemide dosing with at least weekly weights. I do recommend daily weights. As far as the patient's history of coronary artery disease, he should be continued on his Lopressor, rosuvastatin, and aspirin. For the patient's diabetes, he should be continued on Metformin and glipizide. The patient should be seen in followup either by his primary care provider, Dr. Mckeon, or a provider at [facility] per [facility]'s protocol. The patient should return to the emergency room for any chest pain or shortness of breath. The is is a summarized report of a complex medical history and hospital stay. For further details please see the entire medical record. TIME SPENT: Time for this discharge was 50 minutes and preparing the patient's discharge and discussing discharge plans with the patient's family. CONDITION ON DISCHARGE: Stable. Reviewed by SAYDA WOODWARD 12/10/16 1403 CC: German Mckeon MD; [facility]* [id number]/[facility] #: [id number] MTDD
== END 2016-12-05 13:10 | DRG 884 ==
LOC: ED 20:11 → MED 12-02 01:00 → OBSVTOIN 12-02 10:00
PROVIDERS: ADMIT Pediatrics; ATTEND Internal Medicine
DX: F01.51 Vascular dementia, unspecified severity, with behavioral disturbance (principal); E11.22 Type 2 diabetes mellitus with diabetic chronic kidney disease; E11.40 Type 2 diabetes mellitus with diabetic neuropathy, unspecified; I13.0 Hypertensive heart and chronic kidney disease with heart failure and stage 1 through stage 4 chronic kidney disease, or unspecified chronic kidney disease; I50.9 Heart failure, unspecified; N18.3 Chronic kidney disease, stage 3 (moderate); E78.5 Hyperlipidemia, unspecified; I25.10 Atherosclerotic heart disease of native coronary artery without angina pectoris; E11.51 Type 2 diabetes mellitus with diabetic peripheral angiopathy without gangrene; G93.89 Other specified disorders of brain; K21.9 Gastro-esophageal reflux disease without esophagitis; Z95.1 Presence of aortocoronary bypass graft; Z85.46 Personal history of malignant neoplasm of prostate; Z90.79 Acquired absence of other genital organ(s); Z82.49 Family history of ischemic heart disease and other diseases of the circulatory system; Z83.3 Family history of diabetes mellitus; Z87.891 Personal history of nicotine dependence; Z95.0 Presence of cardiac pacemaker; I69.398 Other sequelae of cerebral infarction; Z79.84 Long term (current) use of oral hypoglycemic drugs; Z79.82 Long term (current) use of aspirin
CPT/HCPCS: 36415; 70450; 80053; 80307; 80320; 80329; 81003; 81015; 84443; 85025; 87086; 93005; A9270-GY; G0378; G0480; J1644; J2405

== ENCOUNTER 2018-12-26 18:19 | Inpatient (IN) | payer MEDICARE ==
[2018-12-26] MEDS ORDERED: NS 0.9% 1000 ML** 1,000 ML IV ONE (18:21)
[2018-12-26] MEDS ORDERED: Clindamycin 900 MG IVPREMIX(* 900 MG/50 ML SDV IV ONE (18:24)
--- NOTE | 2018-12-26 18:37 | ED ---
Neurological HPI - HPI Summary HPI Summary: Time seen by provider: 18:17. LEVEL 5 CAVEAT. The patient is an 78 y/o M presenting to [facility] arriving by ambulance with a chief complaint of unresponsiveness. His last known well was at 14:00 today, per CHIMNEY SWEEPER that saw him before he went to lie down for a nap post a late lunch. Per EMS, the patient was unresponsive with left-sided paralysis when they arrived. They also reported that he was having trouble with aspirations, and his O2 sat was in the 80s. He has hx of strokes but is usually responsive and alert afterwards, per EMS. Pain is currently rated 10/10 in severity. - History of Current Complaint Chief Complaint: EDNeurologicalDeficit Stated Complaint: UNRESPONSIVE PER EMS Time Seen by Provider: 12/26/18 18:21 Hx Obtained From: Family/Commercial Real Estate Associate, EMS Hx From Patient Unobtainable Due To: Other - patient is unresponsive - LEVEL 5 CAVEAT Onset/Duration: Sudden Onset, Started hours ago - after 14:00 today, Still Present Timing: Sudden Onset Onset Severity: Severe Current Severity: Severe Pain Intensity: 10 Pain Scale Used: 0-10 Numeric Character: Responsiveness - found unresponsive Associated Signs and Symptoms: Positive: Weakness - on left side, Shortness of Breath - difficulty breathing - Additional Pertinent History Primary Care Physician: KIRSTY - Allergy/Home Medications Allergies/Adverse Reactions: Allergies Allergy/AdvReac Type Severity Reaction Status Date / Time No Known Allergies Allergy Verified 08/23/12 12:07 Home Medications: Home Medications Rosuvastatin Calcium 1 tab PO DAILY 12/26/18 [History Confirmed 12/26/18] PMH/Surg Hx/FS Hx/Imm Hx Endocrine/Hematology History: Reports: Hx Diabetes Cardiovascular History: Reports: Hx Coronary Artery Disease, Hx Hypertension, Hx Pacemaker/ICD, Hx Peripheral Vascular Disease History: Reports: Hx Chronic Renal Failure Neurological History: Reports: Hx Transient Ischemic Attacks (TIA) Psychiatric History: Reports: Other Psychiatric Issues/Disorders - Dementia - Surgical History Surgery Procedure, Year, and Place: Carotid endarterectomy, CABG x 3 Infectious Disease History: No Infectious Disease History: Denies: Traveled Outside the [place] in Last 30 Days - Family History Known Family History: Positive: Unknown - patient is a LEVEL 5 CAVEAT - Social History Alcohol Use: None Hx Substance Use: No Substance Use Type: Reports: None Hx Tobacco Use: No Smoking Status (MU): Former Smoker Review of Systems Positive: Other - difficulty with aspirations Neurological: Other - unresponsive Positive: Weakness - left-sided paralysis All Other Systems Reviewed And Are Negative: No - Comments Additional Review of Systems Comments: LEVEL 5 CAVEAT Physical Exam - Summary Physical Exam Summary: Constitutional: Ill-developed, Well-nourished, Alert. (-) Distressed Skin: Warm, Dry HENT: Normocephalic; Atraumatic Eyes: Conjunctiva normal Neck: Musculoskeletal ROM normal neck. (-) JVD, (-) Stridor, (-) Tracheal deviation Cardio: Rhythm regular, rate normal, Heart sounds normal; Intact distal pulses; The pedal pulses are 2+ and symmetric. Radial pulses are 2+ and symmetric. (-) Murmur Pulmonary/Chest wall: Effort normal. (-) Respiratory distress, (-) Wheezes, (-) Rales Abd: Soft, (-) tenderness, (-) Distension, (-) Guarding, (-) Rebound Musculoskeletal: (-) Edema Lymph: (-) Cervical adenopathy Neuro: left side paretic, gazed to right, gurgling sounds, GCS: 6, NIH: 39 Psych: Mood and affect Normal Triage Information Reviewed: Yes Vital Signs On Initial Exam: Initial Vitals Temp Pulse Resp BP Pulse Ox 98.7 F 82 26 167/88 85 12/26/18 18:20 12/26/18 18:20 12/26/18 18:20 12/26/18 18:20 12/26/18 18:20 Vital Signs Reviewed: Yes - Garfield Coma Scale Best Eye Response: 1 - None Best Motor Response: 4 - Withdraws Best Verbal Response: 1 - None Coma Scale Total: 6 Diagnostics - Vital Signs Vital Signs Temp Pulse Resp BP Pulse Ox 12/26/18 18:20 98.7 F 82 26 167/88 85 - Laboratory Result Diagrams: 12/26/18 18:59 Lab Statement: Any lab studies that have been ordered have been reviewed, and results considered in the medical decision making process. - Radiology CXR Radiology Interpretation Completed By: Radiologist Summary of Radiographic Findings: Reveals aspiration PNA. ED physician has reviewed this report. - CT Brain CT CT Interpretation Completed By: Radiologist Summary of CT Findings: Acute infarct involving the right basal ganglia, insular cortex and right frontal lobe; hemorrhage in the right basal ganglia measuring 2.1 x 0.4 cm; hyperdense right middle cerebral artery. ED physician has reviewed this report. - EKG 18:36 Cardiac Rate: NL - 74 BPM EKG Rhythm: Sinus Rhythm Summary of EKG Findings: Paced rhythm. NIH Scale - NIH Scale Level of Consciousness: Repeated or Painful Stimulation Ask Patient the Month and His/Her Age: Neither Correct/Aphasic Ask Pt to Open/Close Eyes and Superintendent Division/Release Non-Paretic Hand: Neither Correctly Best Gaze (Only Horizontal Eye Movement): Forced Deviation Visual Field Testing: Bilateral Hemianopia Facial Paresis-Pt to Smile & Close Eyes or Grimace Symmetry: Complete Paralysis Motor Function - Right Arm: No Effort Against [place] Motor Function - Left Arm: No Movement Motor Function - Right Leg: No Effort Against [place] Motor Function - Left Leg: No Movement Limb Ataxia-Must be out of Proportion to Weakness Present: Present in Two Limbs Sensory (Use Pinprick to Test Arms/Legs/Trunk/Face): Severe to Total Loss Best Language (Describe Picture, Name Items): Mute/Global Aphasia Dysarthria (Read Several Words): Unintelligible or Mute Extinction and Inattention: Profound René-Inattention Total Score: 39 Course/Dx - Course Course Of Treatment: Time seen by provider: 18:17. LEVEL 5 CAVEAT. The patient is an 78 y/o M arriving by ambulance with a chief complaint of unresponsiveness. His last known well was at 14:00 today, per CHIMNEY SWEEPER that saw him before he went to lie down for a nap post a late lunch. Per EMS, the patient was unresponsive with left-sided paralysis when they arrived. They also reported that he was having trouble with aspirations, and his O2 sat was in the 80s. He has hx of strokes but is usually responsive and alert afterwards, per EMS. Ela snow called at 18:19. Upon physical exam, the patient is paretic on the left side, gazed to the right side, and has gurgling sounds, GCS: 6, NIH: 39. In the ED course, the patient was administered Ns and Cleocin. Blood work reveals elevated lactic acid of 4.7, troponin of 0.06, glucose of 303 and 283, anion gap, and creatinine. EKG shows paced rhythm. CXR reveals aspiration PNA. Brain CT reveals: acute infarct involving the right basal ganglia, insular cortex and right frontal lobe; hemorrhage in the right basal ganglia measuring 2.1 x 0.4 cm; hyperdense right middle cerebral artery. At 18:40 I called the number for his but there was no answer. I spoke with Dr. Navarro at 18:55 concerning patient. Based on advanced direction and severe stroke, further intervention needed. I also spoke with Dr. Armenta, hospitalist, who accepts the patient for admission at 20:00. Nurse Vania will call the facility to talk to his family. He is diagnosed with hemorrhagic stroke, ischemic stroke, and aspiration PNA. Critical care time of 45 minutes. - Diagnoses Provider Diagnoses: Hemorrhagic stroke, Ischemic stroke, Aspiration pneumonia During the Visit The Following Alert/Code Occurred: Code Snow - called at 18:19 - Physician Notifications Discussed Care Of Patient With: Claudia Navarro - neurologist Time Discussed With Above Provider: 18:55 Instructed by Provider To: Other - I spoke with Dr. Navarro concerning patient. Based on advanced direction and severe stroke, further intervention needed. I also spoke with Dr. Armenta, hospitalist, who accepts the patient for admission at 20:00. - Critical Care Time Critical Care Time: 30-74 min - 45 minutes Discharge - Sign-Out/Discharge Documenting (check all that apply): Patient Departure - Patient will be admitted to [facility] for further care. Patient Received Moderate/Deep Sedation with Procedure: No - Discharge Plan Condition: Stable Disposition: ADMITTED TO [facility] - Billing Disposition and Condition Condition: STABLE Disposition: Admitted to [facility] - Attestation Statements Document Initiated by Scott: Yes Documenting Scribe: Nadiya Blount Provider For Whom Scott is Documenting (Include Credential): Dr. Leonardo Arias MD Scribe Attestation: Nadiya Bermeo, scribed for Dr. Leonardo Arias MD on 12/27/18 at 1100. Scribe Documentation Reviewed: Yes Provider Attestation: The documentation as recorded by the Nadiya stallings accurately reflects the service I personally performed and the decisions made by me, Dr. Leonardo Arias MD Status of Scribe Document: Viewed
[2018-12-26 19:27] LABS: Activated Partial Thrombo Time 26.5 seconds (26.0-36.3); INR 0.92 (0.77-1.02)
[2018-12-26 19:33] LABS: ALT 12 U/L (7-52); AST 16 U/L (13-39); Albumin 4.1 g/dL (3.2-5.2); Albumin/Globulin Ratio 1.4 (1-3); Alkaline Phosphatase 70 U/L (34-104); Anion Gap 15 mmol/L (2-11); Blood Urea Nitrogen 23 mg/dL (6-24); CO2 Carbon Dioxide 21 mmol/L (22-32); Calcium 9.5 mg/dL (8.6-10.3); Chloride 101 mmol/L (101-111); Cholesterol 205 mg/dL; EGFR African American 69.8 (>60); EGFR Non-African American 57.7 (>60); Glucose 303 mg/dL (70-100); HDL Cholesterol 48.1 mg/dL; LDL Cholesterol 131 mg/dL; Potassium 4.4 mmol/L (3.5-5.0); Sodium 137 mmol/L (135-145); Total Protein 7.1 g/dL (6.4-8.9); Triglycerides 130 mg/dL
[2018-12-26 19:37] LABS: Troponin I 0.06 ng/mL (<0.04)
[2018-12-26] MEDS ORDERED: Morphine 4 MG/ML VIAL (1 ml) 4 MG/ML VIAL IV PRN (23:23)
[2018-12-26] MEDS ORDERED: NS 0.9% 1000 ML** 1,000 ML IV SCH (23:45)
[2018-12-27] MEDS: Morphine 4 MG/ML VIAL (1 ml) 4 MG/ML VIAL IV PRN ×4 (04:23→17:45)
--- NOTE | 2018-12-27 05:52 | HP ---
CC: German Mckeon MD HISTORY AND PHYSICAL: DATE OF ADMISSION: 12/26/18 PRIMARY CARE PROVIDER: German Mckeon MD HEALTHCARE PROXY: , Brinda Maldonado, home phone [phone], cell phone [phone]. CODE STATUS: DNR/DNI. CHIEF COMPLAINT: Unresponsive at group home. HISTORY OF PRESENT ILLNESS: Mr. Maldonado is an 78-year-old man with a past medical history of multiple strokes ; vascular dementia; myocardial infarction s/p CABG; diabetes c/b neuropathy; heart failure; CKD; peripheral vascular disease; history of left and right carotid endarterectomies, who was sent in from group home after being found unresponsive. Per group home records, EMS, and , pt's last known well was at 2 PM on day of presentation, after he had taken lunch and went down for a nap. Later, the patient was found unresponsive and EMS noted patient to have left-sided paralysis with mucus gurgling in throat with O2 sat on room air in the 80s. In the ER, the patient had stat brain CT, which revealed acute infarct involving the right basal ganglia, insular cortex, and right frontal lobe, hemorrhage in the right basal ganglia measuring 2.1 x 0.4 cm, hyperdense right middle cerebral artery. Neurology was called and recommended no intervention, including aspirin, given hemorrhage. It was noted on his MOLST form that he wanted to be DNR/DNI with limited medical intervention, no feeding tube, only trial of IV fluids, and limitation of antibiotics. The patient's arrived at bedside and noted that at baseline the patient is able to ambulate, but has had multiple falls the last several months and was recommended he use a walker, which he refused. In terms of verbal ability, the patient would say few short phrases, sometimes nonsensical or even inappropriate , and for the last couple weeks she has noted that he has even been more withdrawn and trying to nap more. PAST MEDICAL HISTORY: The patient had a stroke in 2007 and 2010 with residual left- sided weakness; vascular dementia with behavioral issues; NC in the 1980s s/p CABG and pacemaker; heart failure; diabetes; prostate cancer s/p resection; hypertension; CKD; neuropathy; peripheral vascular disease; GERD; left and right carotid endarterectomies. HOME MEDICATIONS: 1. Rosuvastatin 10 mg daily. 2. Vitamin D 4000 units daily. 3. Spironolactone 12.5 mg daily. 4. Ranitidine 150 mg daily. 5. Furosemide 20 mg daily. 6. Aspirin 81 mg daily. 7. Enalapril 5 mg daily. 8. Citalopram 20 mg daily. 9. Glipizide 5 mg daily. 10. Metformin 1000 mg daily. 11. Metoprolol tartrate 12.5 mg twice a day. 12. MiraLAX 17 g daily. ALLERGIES: No known drug allergies. FAMILY HISTORY: Significant for coronary artery disease and diabetes. SOCIAL HISTORY: The patient is living in group home. Never smoker, never alcohol or other drug use. 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 REVIEW OF SYSTEMS: Unable to be obtained due to the patient's unresponsiveness. PHYSICAL EXAMINATION GENERAL: Resting comfortably, nontoxic, unresponsive, and close friend at bedside. Audible gurgling sounds. VITAL SIGNS: Afebrile, heart rate 70s, respiratory rate 20, oxygen 96% on 7 L mask, blood pressure 148/70. HEENT: Neck supple. Mucous membranes moist. RESPIRATORY: Mucous rattle. No wheeze or crackles appreciated anteriorly. CARDIAC: Regular rate and rhythm. Other heart sounds obscured by mucous rattle. ABDOMEN: Mildly distended. No grimace on palpation. No organomegaly. EXTREMITIES: Warm and well perfused. No edema. NEUROLOGIC: The patient is able to open left eye to voice, noted to have rightward gaze. Pupil on left minimally responsive to light. Difficult to see pupil on right side as the patient fights having right eyelid opened. Nasolabial fold flattened on right. Spontaneously moves right arm only. Withdraws all 4 extremities to pain. Toes upgoing bilaterally. DIAGNOSTIC STUDIES AND LABORATORY DATA: Pertinent labs: Sodium 137, BUN and creatinine 23/1.21, glucose 300, lactic 4.7. Troponin 0.06. CBC not obtained. EKG with V-paced complexes, rate 74. Chest x-ray concerning for multiple consolidations, possible aspiration pneumonia. CT brain with acute infarct involving right basal ganglia, insular cortex, right frontal lobe, hemorrhage in the right basal ganglia measures 2.1 x 0.4 cm , hyperdense right middle cerebral artery. ASSESSMENT AND PLAN: 78-year-old man with history significant for multiple strokes; myocardial infarction s/p CABG; vascular dementia with behavioral disturbance, presents with acute unresponsiveness with imaging confirming ischemic and hemorrhagic stroke. 1. Cerebrovascular accident. The patient's MOLST form and healthcare proxy, his clearly demonstrate the patient would want minimal intervention for severe illness. Given hemorrhage seen on CT, he is not a candidate for aspirin or TPA. would prefer that comfort measures are pursued. 2. Aspiration. Based on physical exam and chest x-ray, the patient may have aspiration pneumonitis. Currently, there is low concern for lung infection, so we will not start antibiotics. The patient's MOLST form does show the patient would prefer limitation of antibiotics. Currently, will not continue clindamycin given in the ER. Nursing can suction the patient as needed. Morphine is ordered if the patient is demonstrated to have significant dyspnea or air hunger. 3. FEN. We will trial the patient on IV fluids overnight, likely to DC if little improvement in mental status. Plan to do speech and swallow in the morning if the patient is able to follow commands. 4. DVT prophylaxis. Medical DVT prophylaxis contraindicated given brain bleed. 5. Code status. The patient is DNR/DNI. TIME SPENT: Approximately 60 minutes was spent on admission of this patient, more than half of which was spent at bedside for interview and exam. [id number]/CPS #: [id number] TERRANCE
[2018-12-27 09:05] VITALS: BP 127/61
[2018-12-27] MEDS ORDERED: Atropine 1% (ORAL/SL)* 15 ML BTL SL PRN (10:34)
--- NOTE | 2018-12-27 10:45 | PN ---
Subjective Date of Service: 12/27/18 Interval History: No acute events overnight. Patient's is at bedside and describes that patient has appeared comfortable since admission. According to patient's , he will occasionally reach his arm up toward his head when he is breathing more rapidly, but has since been comfortable with morphine. Patient is not alert for exam, had received morphine 1 hour prior to visit. Objective Active Medications: Atropine Sulfate (Atropine 1% (Oral/Sl)*) 2 drop SL Q2H PRN PRN Reason: DISCOMFORT Sodium Chloride (Ns 0.9% 1000 Ml) 1,000 mls @ 50 mls/hr IV .PER RATE SUZIE Last Admin: 12/27/18 01:06 Dose: 50 mls/hr Morphine Sulfate (Morphine 4 Mg/Ml Vial (1 Ml)) 4 mg IV Q4H PRN PRN Reason: pain or air hunger Last Admin: 12/27/18 09:11 Dose: 4 mg Vital Signs - 8 hr 12/27/18 12/27/18 12/27/18 03:26 04:23 05:46 Temperature Pulse Rate Respiratory 33 34 28 Rate Blood Pressure (mmHg) O2 Sat by Pulse Oximetry 12/27/18 12/27/18 08:02 09:11 Temperature 97.6 F Pulse Rate 70 Respiratory 29 32 Rate Blood Pressure 127/61 (mmHg) O2 Sat by Pulse 96 Oximetry Oxygen Devices in Use Now: Simple Face Mask Appearance: Patient laying in hospital bed appearing in NAD, sleeping Eyes: - - eyes remain closed to voice and sternal rub Ears/Nose/Mouth/Throat: Mucous Membranes Moist Neck: NL Appearance and Movements; NL JVP Respiratory: - - audible gurgling of oral secretions; rhonchi throughout anterior chest on auscultation Cardiovascular: RRR, - - no murmurs or rubs appreciated on auscultation Abdominal: - - abdomen soft, nontender, nondistended Extremities: No Edema, No Clubbing, Cyanosis Skin: - - skin is warm, dry, and intact Neurological: - - Patient does not alert to sound or sternal rub Result Diagrams: 12/26/18 18:59 Microbiology and Other Data: Microbiology 12/26/18 19:32 Nasal Screen MRSA (PCR) - Final Nasal Mrsa Not Detected Assess/Plan/Problems-Billing Assessment: - Patient Problems (1) Hemorrhagic stroke Code(s): I61.9 - NONTRAUMATIC INTRACEREBRAL HEMORRHAGE, UNSPECIFIED SNOMED Code(s): 376547014 Comment: -patient found to have hemorrhagic stroke in right basal ganglia on CT brain at admission -pt's who is his healthcare proxy elected for comfort measures only as this is in line with the patient's wishes -dc'd vital signs; continue IV morphine prn air hunger/SOB -consult to palliative care (2) Aspiration into airway Code(s): T17.908A - UNSP FB IN RESP TRACT, PART UNSP CAUSING OTH INJURY, INIT SNOMED Code(s): 399339300 Comment: -patient is unable to handle oral secretions; there is much gargling with each respiration and rhonchi auscultated throughout anterior chest -swallow study was ordered on admission, though it is unlikely that patient will be able to cooperate with exam, study has been discontinued -ordered SL atropine prn for discomfort with oral secretions; nursing to oral suction if pt allows (3) Comfort measures only status Code(s): Z51.5 - ENCOUNTER FOR PALLIATIVE CARE SNOMED Code(s): 29883960608808 (4) DNR (do not resuscitate) (5) DVT prophylaxis Code(s): BNZ0813 - SNOMED Code(s): 082039502 Comment: -not indicated as patient is comfort measures only; additionally, chemical prophylaxis is contraindicated in setting of hemorrhagic stroke
--- NOTE | 2018-12-27 14:38 | CONSULT ---
Palliative / Hospice Consult Ordering Provider: Emily Murguia - PCP-Mike - Subjective Code Status: DNR Advance Directives Location: In Chart MOLST Part A Completed: Yes - on chart MOLST Part E Completed:: Yes - on chart - History or Present Illness History or Present Illness: 78 yo male resident of [facility] who was found to be unresponsive and transferred to [facility]. PMH is significant for multiple strokes 2007 & 2010 s/p endarterectomy, mod dementia vascular, [place] s/p CABG 3vvessel in 1979, DM type 2 with neuropathy, CHF, CKD, PVD, prostate ca, HTN & GERD. Brain CT acute infarct R basal ganglia, insular cortex and R frontal lobe, CXR cardiomyopathy with pacer. Non smoker,no drugs no etoh has been living in [facility] the last 2 years because he became unsafe at home, 51yrs. (HCP) elected for comfort measures saying he doesn't have a good quality of life and would not want to be kept alive on machines. Pt is unresponsive due to stroke, all history is from family and the chart. MOLST is on chart DNR/DNI. Lab Values: Abnormal Lab Results 12/26/18 12/26/18 12/26/18 18:59 18:59 18:59 INR (Anticoag Therapy) 0.92 APTT 26.5 Sodium 137 Potassium 4.4 Chloride 101 Carbon Dioxide 21 L Anion Gap 15 H BUN 23 Creatinine 1.21 H Est GFR ( Amer) 69.8 Est GFR (Non-Af Amer) 57.7 BUN/Creatinine Ratio 19.0 Glucose 303 H POC Glucose (mg/dL) Lactic Acid 4.7 H* Calcium 9.5 Total Bilirubin 0.80 AST 16 ALT 12 Alkaline Phosphatase 70 Troponin I 0.06 H* Total Protein 7.1 Albumin 4.1 Globulin 3.0 Albumin/Globulin Ratio 1.4 Triglycerides 130 Cholesterol 205 LDL Cholesterol 131 HDL Cholesterol 48.1 12/26/18 21:06 INR (Anticoag Therapy) APTT Sodium Potassium Chloride Carbon Dioxide Anion Gap BUN Creatinine Est GFR ( Amer) Est GFR (Non-Af Amer) BUN/Creatinine Ratio Glucose POC Glucose (mg/dL) 283 H Lactic Acid Calcium Total Bilirubin AST ALT Alkaline Phosphatase Troponin I Total Protein Albumin Globulin Albumin/Globulin Ratio Triglycerides Cholesterol LDL Cholesterol HDL Cholesterol Laboratory Last Values INR (Anticoag Therapy) 0.92 (0.77-1.02) 12/26/18 18:59 APTT 26.5 seconds (26.0-36.3) 12/26/18 18:59 Sodium 137 mmol/L (135-145) 12/26/18 18:59 Potassium 4.4 mmol/L (3.5-5.0) 12/26/18 18:59 Chloride 101 mmol/L (101-111) 12/26/18 18:59 Carbon Dioxide 21 mmol/L (22-32) L 12/26/18 18:59 Anion Gap 15 mmol/L (2-11) H 12/26/18 18:59 BUN 23 mg/dL (6-24) 12/26/18 18:59 Creatinine 1.21 mg/dL (0.67-1.17) H 12/26/18 18:59 Est GFR ( Amer) 69.8 (>60) 12/26/18 18:59 Est GFR (Non-Af Amer) 57.7 (>60) 12/26/18 18:59 BUN/Creatinine Ratio 19.0 (8-20) 12/26/18 18:59 Glucose 303 mg/dL (70-100) H 12/26/18 18:59 POC Glucose (mg/dL) 283 mg/dL (70-100) H 12/26/18 21:06 Lactic Acid 4.7 mmol/L (0.5-2.0) H* 12/26/18 18:59 Calcium 9.5 mg/dL (8.6-10.3) 12/26/18 18:59 Total Bilirubin 0.80 mg/dL (0.2-1.0) 12/26/18 18:59 AST 16 U/L (13-39) 12/26/18 18:59 ALT 12 U/L (7-52) 12/26/18 18:59 Alkaline Phosphatase 70 U/L (34-104) 12/26/18 18:59 Troponin I 0.06 ng/mL (<0.04) H* 12/26/18 18:59 Total Protein 7.1 g/dL (6.4-8.9) 12/26/18 18:59 Albumin 4.1 g/dL (3.2-5.2) 12/26/18 18:59 Globulin 3.0 g/dL (2-4) 12/26/18 18:59 Albumin/Globulin Ratio 1.4 (1-3) 12/26/18 18:59 Triglycerides 130 mg/dL 12/26/18 18:59 Cholesterol 205 mg/dL 12/26/18 18:59 LDL Cholesterol 131 mg/dL 12/26/18 18:59 HDL Cholesterol 48.1 mg/dL 12/26/18 18:59 - Objective Active Medications: Atropine Sulfate (Atropine 1% (Oral/Sl)*) 2 drop SL Q2H PRN PRN Reason: DISCOMFORT Last Admin: 12/27/18 11:52 Dose: 2 drop Sodium Chloride (Ns 0.9% 1000 Ml) 1,000 mls @ 50 mls/hr IV .PER RATE SUZIE Last Admin: 12/27/18 01:06 Dose: 50 mls/hr Morphine Sulfate (Morphine 4 Mg/Ml Vial (1 Ml)) 4 mg IV Q2H PRN PRN Reason: pain or air hunger Last Admin: 12/27/18 12:54 Dose: 4 mg Vital Signs: Vital Signs: Temp Pulse Resp BP Pulse Ox 97.6 F 70 32 127/61 96 12/27/18 08:02 12/27/18 08:02 12/27/18 12:54 12/27/18 08:02 12/27/18 08:02 Patient Weight: Weight 77.111 kg Intake and Output: Intake & Output 12/25/18 12/26/18 12/27/18 12/28/18 06:59 06:59 06:59 06:59 Intake Total 1050 Balance 1050 Weight 77.111 kg Intake: IV Fluids 1050 Oral 0 Other: # Voids 2 ADLs: Meal Record Start: 12/27/18 00: 04 Freq: DAILY@0900,1400,1800 Status: Active Protocol: Created 12/27/18 00:04 System (Rec: 12/27/18 00:04 System [id number]) Document 12/27/18 09:00 [id number] (Rec: 12/27/18 11:51 [id number] [id number]) Intake and Output Start: 12/27/18 00: 04 Freq: DAILY@0600,1400,2200 Status: Active Protocol: Created 12/27/18 00:04 System (Rec: 12/27/18 00:04 System [id number]) Document 12/27/18 06:00 [id number] (Rec: 12/27/18 06:50 [id number] [id number]) Eyes: - - eyes remain closed to voice and sternal rub Ears/Nose/Mouth/Throat: Mucous Membranes Moist Neck: NL Appearance and Movements; NL JVP Cardiovascular: RRR, - - no murmurs or rubs appreciated on auscultation Respiratory: - - upper airway congestion Abdominal: - - abdomen soft, nontender, nondistended Extremities: No Edema, No Clubbing, Cyanosis Neurological: - - Patient does not alert to sound or sternal rub - Assessment Assessment: 78 yo male s/p CVA on comfort care prognosis poor - Plan Consult Plan (MU): Palliative Plan: Spoke with pt's and 2 grand daughters offered support and education. They are aware of pt's stroke and poor prognosis. They are comfortable with comfort measures. Discussed upcoming signs and symptoms of dying and letting nurse know if pt seems uncomfortable. KPS 10% PPS 10% - Time On Unit Date of Evaluation: 12/27/18 Hospice Consult Time in: 01:30 Hospice Consult Time Out: 03:00 Hospice Consult Time Total: 90 > 50% of Time Spend In Counseling or Coordinating Care: Yes
[2018-12-27] MEDS ORDERED: LORazepam TAB(*) 1 MG SL PRN (17:50)
[2018-12-27] MEDS: Morphine ORAL CONCENTRATE* 5 MG/0.25 ML ORAL.SYRIN SL PRN ×4 (19:27→23:55)
[2018-12-27] MEDS: Atropine 1% (ORAL/SL)* 15 ML BTL SL PRN ×3 (19:27→23:55)
[2018-12-28] MEDS: Morphine ORAL CONCENTRATE* 5 MG/0.25 ML ORAL.SYRIN SL PRN ×3 (01:33→04:48)
[2018-12-28] MEDS: Atropine 1% (ORAL/SL)* 15 ML BTL SL PRN ×7 (04:49→21:25)
[2018-12-28] MEDS: Morphine 4 MG/ML VIAL (1 ml) 4 MG/ML VIAL IV PRN ×7 (07:39→22:27)
--- NOTE | 2018-12-28 14:50 | PN ---
Subjective Date of Service: 12/28/18 Interval History: Patient is unresponsive and history is gathered from . Multiple family members are also at bedside. Patient's reports that patient has not opened his eyes or moved his arm today, which he did do yesterday. Patient's reports she observed him "sigh with relief" when orally suctioned for comfort. Objective Active Medications: Atropine Sulfate (Atropine 1% (Oral/Sl)*) 2 drop SL Q1H PRN PRN Reason: DISCOMFORT Last Admin: 12/28/18 13:08 Dose: 2 drop Lorazepam (Ativan Tab(*)) 1 mg SL Q4H PRN PRN Reason: Anxiety/agitation Morphine Sulfate (Morphine 4 Mg/Ml Vial (1 Ml)) 4 mg IV Q1H PRN PRN Reason: pain or air hunger Last Admin: 12/28/18 13:07 Dose: 4 mg Morphine Sulfate (Morphine Oral Concentrate*) 5 mg SL Q1H PRN PRN Reason: pain/tachypnea RR>24 Last Admin: 12/28/18 04:48 Dose: 5 mg Vital Signs - 8 hr 12/28/18 12/28/18 12/28/18 07:39 07:40 07:41 Respiratory 40 40 40 Rate 12/28/18 12/28/18 12/28/18 08:00 10:28 10:29 Respiratory 40 38 38 Rate 12/28/18 12/28/18 12/28/18 13:07 13:08 14:40 Respiratory 32 32 32 Rate Oxygen Devices in Use Now: Simple Face Mask, OxyMask Appearance: Elderly appearing male laying in hospital bed, unresponsive to voice or touch, appearing in NAD Eyes: - - unable to assess as eyes do not open for exam Ears/Nose/Mouth/Throat: Mucous Membranes Moist Neck: NL Appearance and Movements; NL JVP Respiratory: - - significant rhonchi anteriorly, significant gurgling with respirations Cardiovascular: - - regular rate and rhythm, unable to appreciate murmurs/rubs/ gallops Abdominal: - - abdomen is distended, patient does not repond to palpation Extremities: No Edema, No Clubbing, Cyanosis Skin: No Rash or Ulcers, - - skin is warm, dry, intact Neurological: - - patient is not responsive to voice or touch Result Diagrams: 12/26/18 18:59 Microbiology and Other Data: Microbiology 12/26/18 19:32 Nasal Screen MRSA (PCR) - Final Nasal Mrsa Not Detected Assess/Plan/Problems-Billing Assessment: - Patient Problems (1) Hemorrhagic stroke Code(s): I61.9 - NONTRAUMATIC INTRACEREBRAL HEMORRHAGE, UNSPECIFIED SNOMED Code(s): 137983954 Comment: -patient found to have hemorrhagic stroke in right basal ganglia on CT brain at admission -pt's who is his healthcare proxy elected for comfort measures only as this is in line with the patient's wishes -dc'd vital signs; continue IV morphine prn air hunger/SOB, patient has not been receiving morphine at maximum prns -consult to palliative care, appreciate recommendations (2) Aspiration into airway Code(s): T17.908A - UNSP FB IN RESP TRACT, PART UNSP CAUSING OTH INJURY, INIT SNOMED Code(s): 708152805 Comment: -gargling with respirations appears worse today -continue SL atropine prn for discomfort with oral secretions; nursing to continue oral suction for comfort (3) Comfort measures only status Code(s): Z51.5 - ENCOUNTER FOR PALLIATIVE CARE SNOMED Code(s): 51698125219513 (4) DNR (do not resuscitate) (5) DVT prophylaxis Code(s): NXO3872 - SNOMED Code(s): 144644899 Comment: -not indicated as patient is comfort measures only; additionally, chemical prophylaxis is contraindicated in setting of hemorrhagic stroke
--- NOTE | 2018-12-28 20:44 | PN ---
Progress Note - Progress Note Date of Service: 12/28/18 Note: Paged that patient is on comfort measures and has an ICD. Recommending placing a magnet on tonight and recommend turning off ICD in AM.
--- NOTE | 2018-12-29 00:35 | PN ---
Progress Note - Progress Note Date of Service: 12/29/18 Note: Patient at 2318 Several family members at the bedside. Magnet placed once patient started with agonal respirations. No heart tones or spontaneous respirations summary completed electronically. See summary for further details.
--- NOTE | 2018-12-29 04:27 | DS ---
CC: German Mckeon MD; [facility] staff * SUMMARY: DATE OF ADMISSION: 12/26/18 DATE OF : 12/28/18 TIME OF : 2317. PRIMARY CARE PHYSICIAN: German Mckoen MD. HOSPITAL COURSE: Please refer to the complete medical records for a detailed summary of the patient's hospitalization. In brief, this is an 78-year-old man with a past medical history of CVA, vascular dementia, and coronary artery disease, who presented on the evening of the after being found unresponsive in the correction. The patient's CAT scan on admission was read as acute infarct involving the right basal ganglia, insular cortex, and right frontal lobe, hemorrhage in the right basal ganglia measuring 2.1 x 0.4 cm, hyperdense right middle cerebral artery. The patient's was his healthcare proxy and his MOLST form with limited interventions prior to this admission in the setting of his unresponsiveness and significant hemorrhagic stroke. The decision was made to admit him and to pursue comfort measures. Palliative care was involved. The patient was kept comfortable with morphine and Ativan. He remained unresponsive. He on 12/28/18 at 2318 with no heart sounds or respirations. Several family members at the bedside. Patient was comfortable. No questions were asked by the family. PATIENT TIME: Less than 30 minutes was spent doing the discharge summary and more than half the time was spent in direct patient contact. [id number]/CPS #: [id number] MTDD
== END 2018-12-28 23:18 | disposition expired | DRG 64 ==
LOC: ED 18:19 → MED 23:23
PROVIDERS: ADMIT Internal Medicine; ATTEND Pediatrics
DX: I61.9 Nontraumatic intracerebral hemorrhage, unspecified (principal); J69.0 Pneumonitis due to inhalation of food and vomit; F01.51 Vascular dementia, unspecified severity, with behavioral disturbance; I13.0 Hypertensive heart and chronic kidney disease with heart failure and stage 1 through stage 4 chronic kidney disease, or unspecified chronic kidney disease; I42.9 Cardiomyopathy, unspecified; I69.354 Hemiplegia and hemiparesis following cerebral infarction affecting left non-dominant side; Z66 Do not resuscitate; E11.42 Type 2 diabetes mellitus with diabetic polyneuropathy; E11.22 Type 2 diabetes mellitus with diabetic chronic kidney disease; N18.9 Chronic kidney disease, unspecified; E11.51 Type 2 diabetes mellitus with diabetic peripheral angiopathy without gangrene; K21.9 Gastro-esophageal reflux disease without esophagitis; Z51.5 Encounter for palliative care; I25.10 Atherosclerotic heart disease of native coronary artery without angina pectoris; I25.2 Old myocardial infarction; Z95.1 Presence of aortocoronary bypass graft; Z85.46 Personal history of malignant neoplasm of prostate; Z79.84 Long term (current) use of oral hypoglycemic drugs; Z79.82 Long term (current) use of aspirin; Z79.899 Other long term (current) drug therapy; Z82.49 Family history of ischemic heart disease and other diseases of the circulatory system; Z83.3 Family history of diabetes mellitus; Z95.810 Presence of automatic (implantable) cardiac defibrillator
CPT/HCPCS: 36415; 70450; 71045; 80053; 80061; 83605; 84484; 85610; 85730; 87040; 87641; 93005; 99284; A9270-GY; J2270